=== PATIENT | male | born 1950 | race Caucasian/White ===

== ENCOUNTER 2018-09-22 08:34 | Inpatient (IN) ==
[2018-09-22] MEDS ORDERED: 0.9 % Sodium Chloride 1,000 ML IVC SCH ×2 (08:45→16:07)
[2018-09-22] MEDS ORDERED: 0.9 % Sodium Chloride 1,000 ML ONE ×2 (09:03→09:14)
--- NOTE | 2018-09-22 09:08 | Pre-Sedation Evaluation ---
Pre-sedation evaluation - Pre-sedation checklist Date of procedure: 09/22/18 Procedure: C H&P (including ROS) documented in medical record: Yes Previous reaction to sedatives/anesthetics: No Dietary Status: NPO after Midnight Airway Assessment: Patient can open mouth completely, TMJ function normal, Micrognathia (under-bite, receding chin) absent, Neck with adequate range of motion Dentition: No loose teeth or bridges Possible difficult airway: No ASA Classification *see protocol: CLASS II-Mild systemic disease Plan of Care: Pt appropriate candidate for procedure/moderate/conscious sedation, Risks/benefits of procedure/sedation discussed w/ patient/family Cardiac Registry (Cardio Only) - Functional Capacity Functional Capacity: >=4 METS with symptoms - Clincal Frailty Scale Clinical Frailty Scale: Managing Well
--- NOTE | 2018-09-22 09:09 | History & Physical Report ---
Date of Encounter: 09/22/18 Time of Encounter: 09:05 24 Hour HP Update - Instructions Instructions: If the History and Physical is less than 30 days old and was completed prior to A.M. admission and or procedure and has NOT been updated on calendar day of procedure please complete this update prior to performing procedure. - Update Patient reports changes in Medical Condition: No Changes in examination, assessment, or condition: No Changes in Medication: Yes Preop tests/diagnostics Reviewed: Yes Surgery Remains Indicated: Yes Consent for Planned Operative Procedure(s) Verified: Yes - Pre-Operative Checklist Preoperative Checklist Indicated: No Prophylactic Antibiotic Ordered: No Home Medications Include Beta Cathie: Yes Beta Cathie Taken Today (Day of Surgery): Yes Beta Cathie Taken Yesterday (Day Prior to Surgery): Yes Is VTE Prophylaxis Indicated?: NO
[2018-09-22] MEDS ORDERED: Heparin 1,000 UNITS/500 mL 500 ML ONE (09:13)
[2018-09-22] MEDS ORDERED: ISOVUE-370 200 ML INFUS..BTL ONE (09:13)
[2018-09-22] MEDS ORDERED: *HR* Heparin 10,000 UNIT/10 ML VIAL ONE (09:13)
[2018-09-22] MEDS ORDERED: Nitroglycerin 1,000 MCG/10 ML VIAL IV ONE (09:14)
[2018-09-22] MEDS ORDERED: *HR* Midazolam HCl 2 MG/2 ML VIAL ONE (10:17)
[2018-09-22] MEDS ORDERED: *HR* FentaNYL (PF) 100 MCG/2 ML VIAL ONE (10:18)
[2018-09-22] MEDS ORDERED: Acetaminophen 325 MG TABLET PO PRN (11:14)
[2018-09-22] MEDS ORDERED: Nitroglycerin 0.4 MG TAB.SUBL SL PRN (11:14)
--- NOTE | 2018-09-22 13:03 | Invasive Diagnostic Lab Proc ---
Name: Enrique Nelson Date of Study: 09/22/2018 Date: 1950 Ht: 70.0in Medical Record#: [id number] Age: 68 Wt: 206.35lb Gender: Male BSA: 2.12 Order #: [id number] BMI: 29.61 Physicians Procedure Physician: Liz Jones MD, FACC Referring MD: Referring MD: Mukund Salazar MD Staff Name [facility] Suki Guallpa RN Pre-Op Nurse Nicol Luis RT (R) Scrub 10:14 AM Stephany Og RN Monitor 10:14 AM Leni Rousseau RN Calender Wind Up Helper 10:15 AM Indications Indication Abnormal Test - Stress Procedures Performed Procedure L HRT ARTERY/VENTRICLE ANGIO Pre-Procedure Checklist Informed consent is complete signed and on chart. H&P is on chart. ID band is on and ID verified with patient. Patient NPO for procedure The procedure was described for the patient and questions were answered. Blood Pressure: 133/88 ECG is on chart. Rhythm: NSR Plan of Care Patient will tolerate the procedure without complications. Adequate level of comfort will be maintained. Hemodynamics will remain stable Patient will recover from procedure without complications. Respiratory function will be maintained. Cardiac rhythm will remain stable. Patient temperature will be maintained. Patient and/or family have verbalized understanding of the procedure. Patient Education Intravenous Access Time IV Size Location DC'd Fluid/Drip Rate Units RN 09:04 AM Started with 20g 1 1/4" Lt Antecubital 0.9NaCl 20 ml/hr Suki Guallpa RN Allergies No Known Allergies Vital Signs Time BP (mmHg) HR (bpm) O2 Sat. RR (bpm) LOC 09:04 AM 133 / 88 62 96 % 18 5 = Fully awake and oriented or at pre-proc level 10:17 AM / % 5 = Fully awake and oriented or at pre-proc level 10:17 AM / % 4 = Oriented but drowsy 10:32 AM / % 4 = Oriented but drowsy 10:17 AM 150 / 82 57 98 % 16 10:22 AM 135 / 79 57 96 % 14 10:27 AM 142 / 68 59 96 % 27 10:32 AM 129 / 75 58 95 % 18 10:42 AM 124 / 69 58 96 % 13 10:47 AM 117 / 71 61 97 % 22 11:30 AM 135 / 81 56 94 % 16 5 = Fully awake and oriented or at pre-proc level 11:45 AM 139 / 85 57 95 % 16 5 = Fully awake and oriented or at pre-proc level 12:24 PM 136 / 83 67 95 % 16 5 = Fully awake and oriented or at pre-proc level 12:35 PM 143 / 84 65 97 % 16 5 = Fully awake and oriented or at pre-proc level Procedural Medications Time Medication Dose Units Method Given By 10:18 AM Oxygen 2 L/min nasal cannula Leni Rousseau RN 10:18 AM Versed 2 mg Intravenous Leni Rousseau RN 10:18 AM Fentanyl 50 mcg Intravenous Leni Rousseau RN 10:29 AM Lidocaine 2% 18 ml Subcutaneous Liz Jones MD, [facility] Renuka Score Preprocedure Postprocedure Activity 2- Moves 4 extremities sustained head lift Activity 2- Moves 4 extremities sustained head lift Circulation 2- SBP +/= 20 points of pre-anesthetic level Circulation 2- SBP +/= 20 points of pre-anesthetic level Consciousness 2- Awake and alert oriented x 3 Consciousness 2- Awake and alert oriented x 3 O2 Saturation 2- Able to maintain O2 satruation of 92% on room air O2 Saturation 2- Able to maintain O2 satruation of 92% on room air Respiratory 2- Able to deep breathe and cough well Respiratory 2- Able to deep breathe and cough well Total Score 10 Total Score 10 Contrast Agent: Isovue Diagnostic Contrast: 73 ml Total Contrast: 73 ml Fluoro Dose: 3475 mGy Procedure Log Time Note Enter By 10:14 AM Pt arrived to electroplating laborer 2 at 10:14 [facility] 10:14 AM [facility] Virgilio and colten completed [facility] 10:14 AM Sign in performed according to hospital policy. Informed [facility]. [email or web address] AM Procedure start 10:14 [facility] 10[facility] AM Patient charges- Angio tray pack, Navilyst 3mm J, Pulse Oximetry and ACIST tubing and transducer [email or web address] 10:14 AM IV Supplies used: J loop Angio Cath. [facility] 10:14 AM Nicol Luis RT (R) Position: scrub Time in: 10:14 [email or web address] 10:15 AM Stephany Og RN Position: Monitor Time in: 10:14 [email or web address] 10:15 AM Leni Rousseau RN Position: Calender Wind Up Helper Time in: 10:15 [email or web address] 10:15 AM Case Delayed No [email or web address] 10:16 AM Hair removed from procedure site in holding area using clippers. Bilateral groin prepped with Chloraprep by Leni Rousseau RN, then patient was draped. Skin intact. [email or web address] 10:16 AM CathStat 10:16 AM Vitals capture started with the following parameters, Patient=Adult, Interval=5 min, Initial Wdcnskmt=287 mmHg, Deflation Rate=5 mmHg, Cuff placed on Right Arm 10: AM Time: :17 Patient comfortable and pain free: Yes scoates 10:17 AM Time: 10:17LOC: 5 = Fully awake and oriented or at pre-proc level scoates 10:17 AM HR=57 bpm, HGEX=560/82 mmhg, SpO2=98.0 %, Resp=16 B/min, EtCO2=32 mmHg, Comment=sb 10: AM Time: 10:18 Oxygen on at 2 L/min per nasal cannula by Leni oRusseau RN scoates 10: AM Time: 10:18 Versed 2 mg Intravenous Given by Leni Rousseau RN scoates 10: AM Time: 10:18 Fentanyl 50 mcg Intravenous Given by Leni Rousseau RN scoates 10: AM HR=57 bpm, HHFH=498/79 mmhg, SpO2=96.0 %, Resp=14 B/min, Comment=sb 10:25 AM Clinical Presentation: Unstable angina scoates 10: AM HR=59 bpm, IXPX=892/68 mmhg, SpO2=96.0 %, Resp=27 B/min, Comment=sb 10: AM Time out was performed according to hospital policy. Conscious sedation and anesthesia was achieved (see medication log with in this report above) scoates : AM Time: : 18 ml Lidocaine 2% to right groin Subcutaneous Given by Liz Jones MD, [facility] scoates 10:29 AM Access obtained by percutaneous puncture. 5Fr 10cm Terumo Buckhorn sheath placed in right Femoral artery. [id number] scoates 10:30 AM LCA angiography performed in multiple views. scoates 10:30 AM Pressure channel 1 zeroed. 10:31 AM Pressure channel 1 zeroed. 10:31 AM Recorded Pressure: Ao, HR=62, Condition=Condition 1 (Aorta) Ao 164/118/139 10:32 AM HR=58 bpm, MPIL=071/75 mmhg, SpO2=95.0 %, Resp=18 B/min, Comment=sb 10:32 AM Time: 10:17 Patient comfortable and pain free: Yes scoates 10:32 AM Time: 10:17LOC: 4 = Oriented but drowsy scoates 10:32 AM Catheter removed scoates 10:33 AM 5Fr FR 4 catheter inserted over the wire DNC scoates 10:33 AM RCA angiography performed in multiple views. scoates 10:34 AM Catheter removed scoates 10:35 AM 5Fr Pigtail catheter inserted over the wire [facility] scoates 10:40 AM Catheter crossed the aortic valve and was selectively placed in the left ventricle. Pressures recorded on pullback for left heart catheterization. scoates 10:40 AM Bolus angiogram of left Ventricle complete: 8 ml/sec for a total of 24 mls scoates 10:40 AM Pressure channel 1 zeroed. 10:41 AM Recorded Pressure: LV, HR=60, Condition=Condition 1 (Left Ventricle) LV 131/-8/9 10:41 AM Recorded Pressure: LV, Ao, HR=57, Condition=Condition 1 (Left Ventricle) LV 90/10/13, (Aorta) Ao 93/55/74 10:42 AM HR=58 bpm, GLIL=710/69 mmhg, SpO2=96.0 %, Resp=13 B/min, Comment=sb 10:42 AM Catheter removed scoates 10:43 AM Procedure completed at 10:42 09/22/2018 scoates 10:45 AM Sign out completed: Radiation Dose 278 mGy, 3475 cGy/cm2 Fluoro Time: 2.1 Isovue 370 - 200ml contrast 73 ml given by Liz Jones MD, [facility]. Complications: None. The patient was discharged out of the slab installer in stable condition. Cardiac Rehab Consult needed: NoConfirmed administered medications: Yes scoates 10:45 AM Isovue 370 - 200ml,1 Bottle(s) used. scoates 10:47 AM HR=61 bpm, LQRV=746/71 mmhg, SpO2=97.0 %, Resp=22 B/min 10:47 AM Time: 10:32 Patient comfortable and pain free: Yes scoates 10:48 AM Time: 10:32LOC: 4 = Oriented but drowsy scoates 10:50 AM Arterial sheath pulled, Mynx closure device used and was Successful [id number] S/N. scoates 10:50 AM Estimated Blood Loss: minimal scoates 10:50 AM Post ECG Sinus Bradycardia scoates 10:50 AM Post Blood Pressure 117/71 scoates 10:50 AM 10:50 Post Pulses Bilateral DP & PT 1+ scoates 10:50 AM Information taught Cardiac Cath scoates 10:51 AM Education needs Procedure, Plan of Care, and Responsibilities of Patient in Care scoates 10:51 AM Learning barriers :None scoates 10:51 AM Education Methods Verbal scoates 10:51 AM Education evaluation Able to repeat information scoates 10:54 AM Site status No bleeding/hematoma - Rt Groin as reported by Sites, Nicol RT (R) at 10:54 scoates 10:54 AM Opsite applied scoates 10:54 AM Report given to Fadia COTA Pt taken to Holding room Room #14. 10:54 scoates 10:54 AM Plavix, Effient or Brilinta given No scoates 10:54 AM Delay to floor Bed availability scoates 10:54 AM Patient out of room: 10:54 scoates 10:55 AM Family placed in consult room. scoates 10:[address] surgery consulted scoates 10:55 AM is in OR, gave consult info to his OR nurse scoates 10:55 AM Lesion found in Proximal RCA. Pre Stenosis: 100 Pre SEAMUS Flow: scoates 10:55 AM Lesion found in Distal LMCA. Pre Stenosis: 90 Pre SEAMUS Flow: scoates 10:55 AM Coronary Dominance: right scoates 10:56 AM Lesion found in Proximal LAD. Pre Stenosis: 90 Pre SEAMUS Flow: scoates 10:56 AM Lesion found in Proximal Circumflex. Pre Stenosis: 70 Pre SEAMUS Flow: scoates 10:56 AM Lesion found in Right PDA. Pre Stenosis: 100 Pre SEAMUS Flow: scoates 10:57 AM Left Main Coronary Artery with 90% stenosis scoates 10:57 AM Proximal Left Anterior Descending Coronary Artery with 90% stenosis. If graft is supplying this territory, 0 % stenosis. scoates 10:57 AM Circumflex, Obtuse Marginal, Left Posterior Descending, and Left Posterolateral Coronary Arteries with 70 % stenosis. If graft is supplying this area, 0 % stenosis scoates 10:57 AM Right Coronary, Right Posterior Descending Arteries with Right Posterolateral and Acute Marginal branches with 100 % stenosis. If graft is supplying this area, 0 % stenosis scoates 11:46 AM Patient eating food tray. at bedside mprater 12:50 PM Report given to Kori mprtiki 12:54 PM Transfered patient to Ifeoma mprater Complications Complication None Hemodynamics Pressures Site Systolic/A Wave Diastolic/V Wave Mean AO 164 118 139 LV 131 -8 9 LV 90 10 13 AO 93 55 74 Post Procedure Information Blood Pressure: 117/71 mmHg Rhythm: Sinus Bradycardia Post procedural instructions were given Closure Device Time Device Success/Fail 09/22/2018 10:57:00 AM MynxGrip Successful Site Checks Time Location Status Staff Sheath In? Note 10:54 AM Rt Groin No bleeding/hematoma Sites, Nicol RT (R) 11:30 AM Rt Groin No bleeding/ No Hematoma Shey Bronson RN 11:45 AM Rt Groin No bleeding/ No Hematoma Shey Bronson RN 12:24 PM Rt Groin No bleeding/ No Hematoma Suki Guallpa RN 12:35 PM Rt Groin No bleeding/ No Hematoma Shey Bronson RN Pulses Time Site Pre-Procedure Post-Procedure Note 09/22/2018 9:04:00 AM Bilateral DP & PT 1+ 09/22/2018 9:04:00 AM Bilateral radial 2+ 10:50:00 AM Bilateral DP & PT 1+ 09/22/2018 11:30:00 AM Bilateral DP & PT 1+ 09/22/2018 12:35:00 PM Bilateral DP & PT 1+ Updated by Shey Bronson RN on 09/22/2018 12:53:55 PM Shey Bronson RN electronically signed on 09/22/2018 12:54:28 PM with status of Final
--- NOTE | 2018-09-22 15:36 | Cardiothoracic Consult Note ---
Date of Encounter: 09/22/18 Time of Encounter: 15:33 Assessment and Plan (1) CAD (coronary artery disease) Current Visit: Yes Status: Acute The patient is an active 68-year-old man with no significant medical history. During the last 6 months he has noticed progressive shortness of breath and dyspnea exertion while lifting heavy objects. He was recommended for cardiac workup by his primary care physician. An exercise nuclear stress test revealed mild mid-inferior ischemia on the nuclear portion and the patient experienced nonradiating substernal chest pain during the exercise portion. Subsequent cardiac catheterization revealed severe 3 vessel CAD and an LVEF 60%. In particular, the patient has a 90% distal left main lesion, 90% proximal LAD lesion, a 70% proximal LCx lesion, and a completely occluded proximal RCA. He has been recommended for CABG. I concur with this recommendation. The STS risk calculator reveals an operative mortality risk 0.61%, renal failure risk 0.87%, permanent stroke risk 0.38%, deep sternal wound infection risk 0.18%, and reoperation risk 1.77%. The patient understands the procedure, benefits, alternatives, and risks as outlined above. He will undergo CABG by Dr. Luis Carrillo on September. The assessment and plan as outlined above was discussed with the patient and/or family members who expressed understanding and agreement. All questions were answered. Qualifiers: Coronary Disease-Associated Artery/Lesion type: [place] artery [place] vs. transplanted heart: [place] heart Associated angina: with other forms of angina Qualified Code(s): I25.118 - Atherosclerotic heart disease of [place] coronary artery with other forms of angina pectoris - History of Present Illness Consult date: 09/22/18 Requesting physician: Liz Jones Consult reason: CABG evaluation Chief complaint: Shortness of breath, dyspnea on exertion History of present illness: Mr. Nelson is a 68 year old otherwise healthy man who is experienced progressive shortness of breath and dyspnea exertion during the last 6 months. 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 These activities require him to lift heavy objects and during the last 6 months he has noticed increasing shortness of breath and dyspnea exertion. The patient denies any substernal chest pain, arm pain, back pain, or neck pain. He mentioned these symptoms to his primary care physician, Dr. David Atwood, and was referred for cardiac workup. The patient underwent an exercise stress test which revealed no evidence of is chemia during the exercise portion; however, he did have nonradiating substernal chest pain/pressure during exercise. The nuclear portion revealed mild mid- inferior ischemia. Given his symptoms, he was recommended for further cardiac workup. He underwent cardiac catheterization today was found to have severe 3 vessel CAD and an LVEF 60%. In particular the patient has a 90% distal left main lesion, a 90% proximal LAD lesion, a 70% proximal LCx lesion, a completely occluded proximal RCA, and a completely occluded right PDA which fills distally via [id number] collaterals. He has been recommended for CABG. Past Med Surg Social Fam HX - Past Medical History Medical history: coronary artery disease, hyperlipidemia Additional medical history: detiriated disk in back Psychiatric history: depression - Past Surgical History Surgical History: appendectomy, herniorrhaphy (Right inguinal herniorrhaphy) - Social History Smoking Status: Never smoker Smokeless Tobacco Status: No Alcohol use: rarely Drug use: none Occupational status: employed Current living situation: Home - Independent Activity Level: Independent ambulation, Very active Recent Out of Country Travel Within the Last 8 Weeks: No Exposure or Possible Exposure to Illness During Travel: No - Family History Mother Adopted: [place]: elizabeth nelson Age: 96 Family Member Ethnicity: Non- Living Status: Still Living Hx Family Cardiac Disorders: Yes Hx Family Respiratory Disorders: No Hx Family Cancer: No Hx Family GI Disorders: No Hx Family Genitourinary Disorders: No Hx Family Endocrine Disorder: Yes Hx Family Musculoskeletal Disorders: No Hx Family Neuromuscular Disorders: No Hx Family Neurologic Disorders: Yes Hx Family HEENT Disorders: No Hx Family Autoimmune Disorders: No Hx Family Reproductive Disorders: No Hx Family Psychosocial Disorders: Yes Hx Family Medical Disorders: Yes Medications and Allergies Doxycycline 100 mg PO BID 09/22/18 [History] Metoprolol Succinate [Toprol Xl] 25 mg PO DAILY 09/22/18 [History] Allergy/AdvReac Type Severity Reaction Status Date / Time No Known Allergies Allergy Verified 09/22/18 08:37 All Systems Review: The remainder of the systems were reviewed and are negative Physical Examination Vital Signs, Last 4 Hours Temp Pulse Resp BP Pulse Ox 09/22/18 15:11 65 17 147/80 95 09/22/18 14:45 62 17 132/78 94 09/22/18 14:00 65 17 126/76 95 09/22/18 13:30 62 98 09/22/18 13:25 97.5 F L 67 18 136/74 95 09/22/18 13:15 71 17 140/83 98 09/22/18 13:10 97.5 F L 67 18 136/74 95 General: Conversant, No Apparent Distress HEENT: Atraumatic, Normocephaly, Trachea midline Neck: No JVD, Normal carotid pulses Cardiac: Reg Rate and Rhythm, Normal S1 and S2, No Murmur Lungs: Normal Breath Sounds, No Wheeze, Rales, Rhonchi Neuro: Alert and responsive, No focal deficits noted, Motor nerves intact, Sensory nerves intact Vascular: Normal capillary refill Abdomen: Soft, Non-tender Skin: No rashes noted on visualized skin Musculoskeletal: No Chest Wall Tenderness Extremities: No Clubbing, No Cyanosis, No Edema, Normal Pulses Consult Discharge Plan - Plan Referrals: Norma Salazar MD [Primary Care Provider] -
[2018-09-22 16:33] LABS: Estimated Average Glucose 108 mg/dl; Hemoglobin A1C 5.4 %
[2018-09-22 16:41] LABS: Chol/HDL Ratio 4.8 (0-4.9)
[2018-09-22] MEDS: Chlorhexidine Rinse 15 ML MOUTHWASH MM SCH (21:38)
[2018-09-22] MEDS: 0.9 % Sodium Chloride 1,000 ML IVC SCH (21:59)
[2018-09-23] MEDS: *HR* Enoxaparin 40 MG/0.4 ML SYRINGE SQ SCH (05:05)
[2018-09-23] MEDS: 0.9 % Sodium Chloride 1,000 ML IVC SCH (06:46)
--- NOTE | 2018-09-23 07:31 | Cardiothoracic Progress Note ---
Date of Encounter: 09/23/18 Time of Encounter: 07:30 - Assessment and plan (1) CAD (coronary artery disease) Current Visit: Yes Status: Acute The patient is an active 68-year-old man with no significant medical history. During the last 6 months he has noticed progressive shortness of breath and dyspnea exertion while lifting heavy objects. He was recommended for cardiac workup by his primary care physician. An exercise nuclear stress test revealed mild mid-inferior ischemia on the nuclear portion and the patient experienced nonradiating substernal chest pain during the exercise portion. Subsequent cardiac catheterization revealed severe 3 vessel CAD and an LVEF 60%. In particular, the patient has a 90% distal left main lesion, 90% proximal LAD lesion, a 70% proximal LCx lesion, and a completely occluded proximal RCA. He has been recommended for CABG. I concur with this recommendation. The STS risk calculator reveals an operative mortality risk 0.61%, renal failure risk 0.87%, permanent stroke risk 0.38%, deep sternal wound infection risk 0.18%, and reoperation risk 1.77%. The patient understands the procedure, benefits, alternatives, and risks as outlined above. He will undergo CABG by Dr. Luis Carrillo on September. The assessment and plan as outlined above was discussed with the patient and/or family members who expressed understanding and agreement. All questions were answered. Qualifiers: Coronary Disease-Associated Artery/Lesion type: [place] artery [place] vs. transplanted heart: [place] heart Associated angina: with other forms of angina Qualified Code(s): I25.118 - Atherosclerotic heart disease of [place] coronary artery with other forms of angina pectoris - Subjective Interval history: The patient remained hemodynamically stable overnight. He has no complaints of substernal chest pain. Vital Signs, Last 4 Hours Temp Pulse Resp BP Pulse Ox 09/23/18 06:45 98.2 F 64 18 127/81 93 09/23/18 04:55 98.2 F 68 17 135/76 96 Oxgyen Flow Rate Oxygen Flow Rate (LPM) 0 Clinical Data, last 8 Hours Output, Urine Amount 200 Output, Urine Amount 225 Output, Urine Amount 275 Weight 09/21/18 09/22/18 09/23/18 23:59 23:59 23:59 Weight 92.9 kg - Physical Examination General: Conversant, No Apparent Distress Neck: No JVD, Normal carotid pulses Cardiac: Reg Rate and Rhythm, Normal S1 and S2, No Murmur Lungs: Normal Breath Sounds, No Wheeze, Rales, Rhonchi Neuro: Alert and responsive, No focal deficits noted Vascular: Normal capillary refill Musculoskeletal: No Chest Wall Tenderness Extremities: No Clubbing, No Cyanosis, No Edema Consult Discharge Plan - Plan Referrals: Norma Salazar MD [Primary Care Provider] -
[2018-09-23] MEDS ORDERED: Metoprolol XL (24 HR) Succ 25 MG TAB.ER.24H PO SCH (09:00)
[2018-09-23] MEDS: Chlorhexidine Rinse 15 ML MOUTHWASH MM SCH ×2 (09:02→21:32)
[2018-09-23] MEDS: Aspirin 81 MG TAB.CHEW PO SCH (09:02)
--- NOTE | 2018-09-23 12:01 | Cardiology Progress Note ---
Date of Encounter: 09/23/18 Time of Encounter: 11:55 Assessment and Plan (1) CAD (coronary artery disease) Current Visit: Yes Status: Acute LHC yesterday revealed severe 3V CAD, EF 60%. CT surgery consulted with plan for CABG tomorrow, 09/24/18. Pt denies chest pain overnight. Right femoral access site healing well. No bleeding or hematoma. Mild ecchymosis. Continue ASA, Statin, BB. TTE LVEF 55-60%. Mild cLVH. Moderate LVDD. Normal right ventricular structure and function. Mild AR. No evidence of phtn. Will continue to follow until taken to CABG. Qualifiers: Coronary Disease-Associated Artery/Lesion type: [place] artery [place] vs. transplanted heart: [place] heart Associated angina: with other forms of angina Qualified Code(s): I25.118 - Atherosclerotic heart disease of [place] coronary artery with other forms of angina pectoris Discussion w patient/family: The assessment and plan as outlined above was discussed with the patient and/or family members who expressed understanding and agreement. All questions were answered. Thank you for involving us in the care of your patient. Please call with any questions. I will discuss all the above with Dr. Pereira and make changes as necessary. Subjective Principal diagnosis: CAD Interval history: Outpt LHC yesterday revealed severe three vessel coronary artery disease. The left ventricle is normal and has normal contractility EF 60%. CT surgery consulted with plan for CABG tomorrow, 09/24/18. Pt denies chest pain overnight. Objective Vital Signs, Last 4 Hours Temp Pulse Resp BP Pulse Ox 09/23/18 11:46 98.2 F 61 18 142/81 93 Vital Signs Temp Pulse Resp BP Pulse Ox 09/23/18 11:46 98.2 F 61 18 142/81 93 09/23/18 06:45 98.2 F 64 18 127/81 93 09/23/18 04:55 98.2 F 68 17 135/76 96 09/23/18 00:40 98.2 F 68 17 117/68 94 09/22/18 19:37 98.3 F 63 16 122/61 94 09/22/18 17:01 97.9 F 64 16 137/74 94 09/22/18 15:11 65 17 147/80 95 09/22/18 14:45 62 17 132/78 94 09/22/18 14:00 65 17 126/76 95 09/22/18 13:30 62 98 09/22/18 13:25 97.5 F L 67 18 136/74 95 09/22/18 13:15 71 17 140/83 98 09/22/18 13:10 97.5 F L 67 18 136/74 95 Intake and Output 09/22/18 09/23/18 09/23/18 23:59 07:59 15:59 Intake Total 357 / 357 1000 / 1000 Output Total 600 / 600 700 / 700 Balance -243 / -243 300 / 300 Intake: IV Fluids 1000 / 1000 0.9 % Sodium Chloride 1,000 ML 1000 / 1000 @ 50 mls/hr IVC .Q20H CYNTHIA Rx#: [id number] Oral 357 / 357 Output: Urine 600 / 600 700 / 700 Other: Meal Dinner Percent of Meal Consumed 100% General: Conversant, No Apparent Distress HEENT: Atraumatic, Normocephaly, Mucus Membranes Moist Neck: No JVD, Normal carotid pulses Cardiac: Reg Rate and Rhythm, Normal S1 and S2, No Murmur Lungs: Normal Breath Sounds, No Wheeze, Rales, Rhonchi Neuro: Alert and responsive, No focal deficits noted Abdomen: Soft, Non-Tender Skin: Other (right femoral access site healing well. No bleeding or hematoma noted. Mild ecchymosis.) Musculoskeletal: No Chest Wall Tenderness Extremities: No Clubbing, No Cyanosis, No Edema, Normal Pulses Results Impressions Chest X-Ray 09/22/18 15:43 IMPRESSION: Trace left basilar airspace disease is favored to represent atelectasis over pneumonia. D/ / Roger Burks MD / Roger Burks MD Interpreting Provider: Roger Burks MD Active Medications Acetaminophen (Tylenol) 650 mg PO Q6HR PRN PRN Reason: Mild Pain Stop: 03/24/19 11:15 Aspirin (Aspirin) 81 mg PO DAILY CYNTHIA Stop: 03/25/19 09:01 Last Admin: 09/23/18 09:02 Dose: 81 mg Atorvastatin Calcium (Lipitor) 80 mg PO HS CYNTHIA Stop: 03/24/19 21:01 Last Admin: 09/22/18 21:42 Dose: Not Given Enoxaparin Sodium (Lovenox) 40 mg SQ 0600 [facility]; Protocol Stop: 03/25/19 06:01 Last Admin: 09/23/18 05:05 Dose: 40 mg Cefazolin Sodium (Ancef Syringe 2,000 Mg/20 Ml) 2,000 mg in 20 mls @ 200 mls/hr IVPB PREOP ONE Stop: 09/24/18 07:05 Sodium Chloride (0.9 % Sodium Chloride) 1,000 mls @ 50 mls/hr IVC .Q20H [facility] Stop: 03/24/19 21:46 Last Admin: 09/23/18 06:46 Dose: 50 mls/hr Metoprolol Succinate (Toprol Xl) 25 mg PO DAILY [facility] Stop: 03/25/19 09:01 Last Admin: 09/23/18 09:01 Dose: 25 mg Metoprolol Tartrate (Lopressor) 25 mg PO BID [facility] Stop: 09/24/18 06:01 Nitroglycerin (Nitroglycerin) 0.4 mg SL Q5MIN PRN PRN Reason: Chest Pain Stop: 03/24/19 11:15 - Imaging and Cardiology Echo: report reviewed Cardiac cath: report reviewed - EKG Interpretation EKG results cardiology: other (12 hr tele AVG HR 66, SR) Consult Discharge Plan - Plan Referrals: Norma Salazar MD [Primary Care Provider] -
[2018-09-23] MEDS ORDERED: 0.9 % Sodium Chloride 1,000 ML IVC SCH (16:05)
[2018-09-24] MEDS: 0.9 % Sodium Chloride 1,000 ML IVC SCH (02:45)
[2018-09-24] MEDS: *HR* Enoxaparin 40 MG/0.4 ML SYRINGE SQ SCH (05:10)
[2018-09-24] MEDS: Chlorhexidine Rinse 15 ML MOUTHWASH MM SCH ×2 (05:44→20:12)
[2018-09-24] MEDS: Aspirin 81 MG TAB.CHEW PO SCH (06:30)
[2018-09-24] MEDS ORDERED: Verapamil 5 MG/2 ML VIAL ONE (06:41)
[2018-09-24] MEDS ORDERED: CeFAZolin Syr 2,000MG/20 ML 2,000 MG/20 ML SYRINGE IVPB ONE (07:00)
[2018-09-24] MEDS ORDERED: *HR* FentaNYL (PF) 1,000 MCG/20 ML VIAL ONE (07:06)
[2018-09-24] MEDS ORDERED: *HR* Rocuronium Bromide 50 MG/5 ML VIAL ONE ×2 (07:06→09:34)
[2018-09-24] MEDS ORDERED: *HR* Propofol 200 MG/20 ML VIAL IVP ONE (07:06)
[2018-09-24] MEDS ORDERED: *HR* Midazolam HCl 5 MG/5 ML VIAL IVP ONE (07:06)
[2018-09-24] MEDS ORDERED: Dexamethasone 4 MG/ML VIAL ONE (07:09)
[2018-09-24] MEDS ORDERED: *HR* PHENYLEPHRINE 1,000 MCG/10 ML SYRINGE IVP ONE ×3 (07:09→11:39)
[2018-09-24] MEDS ORDERED: Famotidine 20 MG/2 ML VIAL ONE (07:09)
[2018-09-24] MEDS ORDERED: *HR* Magnesium Sulfate 1 GM/2 ML VIAL ONE (07:09)
[2018-09-24] MEDS ORDERED: Lidocaine 2% Syringe 100 MG/5 ML ONE (07:10)
[2018-09-24] MEDS ORDERED: Tranexamic Acid 1,000 MG/10 ML VIAL ONE (07:10)
[2018-09-24] MEDS ORDERED: Nitroglycerin 25 MG/250 ML INFUS..BTL IVC ONE (07:17)
--- NOTE | 2018-09-24 07:24 | Anesthesia Evaluation PreOp ---
Date of Encounter: 09/24/18 Time of Encounter: 07:32 - Past History Planned Operation: CABG Cardiac History: HTN, Hyperlipidemia, Other (CAD) Pulmonary History: Denies Any Significant HX VOCATIONAL CASE MANAGER History: Denies Any Significant HX Other Medical History: Denies Any Significant HX Anesthesia History: No Prior Anesthetic Complications, Past Anesthesia (appy, R inguinal hernia) Alcohol Use: rarely Drug use: none Medications and Allergies Doxycycline 100 mg PO BID 09/22/18 [History] Metoprolol Succinate [Toprol Xl] 25 mg PO DAILY 09/22/18 [History] Nitroglycerin [Nitrostat] 0.4 mg SL AD 09/23/18 [History] Allergy/AdvReac Type Severity Reaction Status Date / Time No Known Allergies Allergy Verified 09/23/18 09:03 - Meds/Allergy Pre-op Review Medications Reviewed: Yes Allergies Reviewed: Yes Beta Blockers on Current Med List: Yes (metoprolol) If Beta Blockers taken, Date/Time (Last Dose taken): 544 Anesthesia Results - Labs Laboratory Tests 09/17/18 09/17/18 14:03 14:03 WBC 4.2 L Hgb 13.5 Hct 39.0 Plt Count 227 Sodium 138 Potassium 3.9 Chloride 107 Carbon Dioxide 25 BUN 15 Creatinine 0.97 Est GFR (Non-Af Amer) > 60 - Imaging EKG: report reviewed Additional studies: LEFT HEART CATH Indications: Abnormal Test - Stress Impressions: There is severe three vessel coronary artery disease. The left ventricle is normal and has normal contractility EF 60% Recommendations: Evaluate for CABG. Optimal medical therapy of patient's disease. Aggressive risk factor modification. LV Ventriculography Ejection Method: LV Gram Ejection Fraction: 60% Wall Motion: VALENCIA Anterobasal Normal Anterolateral Normal Apical: Normal Inferoapical Normal Inferobasal Severe Hypokinesis Coronary Dominance: right Lesion Findings/Interventions * Left Main Coronary Artery There is a 90% stenosis in the Distal LMCA. The lesion has heavy calcification noted. * Left Anterior Descending There is a 90% stenosis in the Proximal LAD. The lesion has heavy calcification noted. * Circumflex There is a 70% stenosis in the Proximal Circumflex. 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 R PDA fills via L to R collaterals. Echo Impressions: LVEF 55-60%. Mild concentric left ventricular hypertrophy. Moderate left ventricular diastolic dysfunction. Normal right ventricular structure and function. Mild aortic regurgitation. No evidence of pulmonary hypertension. Left Ventricular Wall Motion: Rest Echo Findings All wall segments showed normal motion. Findings: Study Quality * Technically adequate exam. ECG Findings * Normal sinus rhythm. Left Ventricle * LVEF 55-60%. * Mild concentric left ventricular hypertrophy. * Moderate left ventricular diastolic dysfunction. Aortic Valve * Mild aortic regurgitation. * No aortic stenosis. * Normal aortic valve structure. * Trileaflet aortic valve. Right Ventricle * Normal right ventricular structure and function. Left Atrium * Normal left atrial size. Right Atrium * Normal right atrial size. Interatrial Septum * No evidence of PFO by color Doppler. Mitral Valve * Normal mitral valve structure. * No mitral regurgitation. * No mitral stenosis. Tricuspid Valve * No tricuspid regurgitation. * No tricuspid stenosis. * Normal tricuspid valve structure. * No evidence of pulmonary hypertension. Pulmonic Valve * Normal pulmonic valve structure. * No pulmonic regurgitation. Aorta * Normally sized aortic root. Pericardium * The pericardium appears normal. IVC * Normal IVC dimensions and inspiratory collapse. Pulmonary Artery * Normal visualized portions of the main pulmonary artery. Anesthesia Exam Vital Signs/O2 Sat/Glucose, Most Recent Temp Pulse Resp BP Pulse Ox 98.1 F 63 18 136/74 96 09/24/18 05:47 09/24/18 05:47 09/24/18 05:47 09/24/18 05:47 09/24/18 05:47 - HEENT Pupil (Motor): Pupils equal Mallampati: II Teeth: Normal Oral Opening: Greater than 3 - VOCATIONAL CASE MANAGER LOC: Oriented VOCATIONAL CASE MANAGER Motor: Normal RUE, Normal LUE, Normal RLE, Normal LLE, Normal Face VOCATIONAL CASE MANAGER Sensory: Normal: RUE, LUE, RLE, LLE, Face - Cardiac Rhythm: Regular Murmur: None - Pulmonary Breath Sounds: bilateral Clear Respiratory Effort: Symmetrical Anesthesia Assess/Plan ASA Score: 4 Level of consciousness: Cooperative, Oriented Anesthetic Plan: General Monitoring Plan: Standard Monitors, A-Line, CVC, PAC, CAROLINE Recovery Plan: ICU
[2018-09-24] MEDS ORDERED: Insulin Human Regular 100 UNIT in 0.9 % Sodium Chloride 100 ML IV PRN (07:45)
[2018-09-24] MEDS ORDERED: Dextrose 50 % in Water (Vial) 30 ML, Sodium Bicarbonate 20 MEQ, Potassium Chloride 15 M... TH ONE (07:45)
[2018-09-24] MEDS ORDERED: Dextrose 50 % in Water (Vial) 30 ML, Sodium Bicarbonate 20 MEQ, Lidocaine 1% 5 ML, Insu... TH ONE ×3 (07:45)
[2018-09-24] MEDS ORDERED: Heparin 15,000 UNIT in 0.9 % Sodium Chloride 500 ML IV ONE (07:45)
[2018-09-24] MEDS ORDERED: Norepinephrine 4 MG in D5% in Water 250 ML IVC PRN (07:45)
[2018-09-24 08:11] LABS: ABG Base Excess -1 mEq/L (-2 to 3); ABG Chloride 109 mEq/L (98-107); ABG Glucose 104 mg/dL (60-95); ABG HCO3 26 mEq/L (21-27); ABG Ionized Calcium 1.23 mmol/L (1.15-1.35); ABG Oxygen Saturation 99 % (95-98); ABG PCO2 53 mmHg (35-45); ABG PO2 147 mmHg (85-104); ABG TCO2 28 mEq/L (20-26)
[2018-09-24] MEDS ORDERED: *HR* Phenylephrine 10 MG/ML VIAL IVC ONE (08:50)
[2018-09-24] MEDS ORDERED: Tranexamic Acid 1,000 MG/10 ML VIAL IVPB ONE (08:50)
[2018-09-24] MEDS ORDERED: Sodium Bicarbonate 50 MEQ/50 ML VIAL IVC ONE (08:50)
[2018-09-24] MEDS ORDERED: Lidocaine 2% Syringe 100 MG/5 ML IV ONE (08:50)
[2018-09-24] MEDS ORDERED: Albumin Human 25% 25 GM/100 ML IV.SOLN IV ONE (08:50)
[2018-09-24] MEDS ORDERED: Mannitol 25% vial 12.5 GM/50 ML VIAL IVP ONE (08:50)
[2018-09-24] MEDS ORDERED: *HR* Magnesium Sulfate 2 GM/50 ML PIGGYBACK IVPB ONE (08:50)
[2018-09-24] MEDS ORDERED: *HR* Heparin 10,000 UNIT/10 ML VIAL IV ONE (08:50)
[2018-09-24 09:25] LABS: ABG Base Excess -2 mEq/L (-2 to 3); ABG Chloride 106 mEq/L (98-107); ABG Glucose 106 mg/dL (60-95); ABG HCO3 22 mEq/L (21-27); ABG Ionized Calcium 1.15 mmol/L (1.15-1.35); ABG Oxygen Saturation 99 % (95-98); ABG PCO2 34 mmHg (35-45); ABG PH 7.42 pH Units (7.32-7.45); ABG PO2 136 mmHg (85-104); ABG TCO2 23 mEq/L (20-26)
[2018-09-24] MEDS ORDERED: Albumin Human 5% 25.0 GM/500 ML VIAL ONE (09:26)
[2018-09-24] MEDS ORDERED: Protamine Sulfate 250 MG/25 ML VIAL IVP ONE (09:36)
[2018-09-24] MEDS ORDERED: Protamine Sulfate 50 MG/5 ML VIAL IVP ONE (09:36)
[2018-09-24 10:06] LABS: ABG Base Excess -1 mEq/L (-2 to 3); ABG Chloride 102 mEq/L (98-107); ABG Glucose 225 mg/dL (60-95); ABG HCO3 23 mEq/L (21-27); ABG Ionized Calcium 0.94 mmol/L (1.15-1.35); ABG Oxygen Saturation 100 % (95-98); ABG PCO2 36 mmHg (35-45); ABG PH 7.42 pH Units (7.32-7.45); ABG PO2 611 mmHg (85-104); ABG TCO2 24 mEq/L (20-26)
--- NOTE | 2018-09-24 10:14 | Anesthesia Procedures ---
Date of Encounter: 09/24/18 Time of Encounter: 08:10 Procedures: Anesthesia - Arterial Line Consent obtained: written consent Time out performed: Yes Sedation: Versed (mg): 2 Sedation: Fentanyl (mcg): 50 Local Anesthetic: Lidocaine 1% Size (Gauge): 20 Length (inches): 1 3/4 Technique Used: sterile prep, direct puncture technique Post-Procedure: line taped into place, dry sterile dressing placed Patient tolerated procedure: well, no complications Complications: none Site: Radial L - Central Line Placement Right IJ Consent obtained: written consent Time out performed: Yes Patient placed on monitor/pulse ox: Yes prep: mask, gown, gloves Central line prep: Chlorhexidine scrub Ultrasound used for placement: Yes Technique: Seldinger Lumen Inserted: single Size / Length: 9 Fr / 10 cm Post procedure: sutured in place, good blood return, all ports aspirated, flushed, capped, sterile dressing applied Patient tolerated procedure: well, no complications Complications: none Vitals: see anesthesia record Comments: PAC inserted using pressure waveform analysis and secured at 48 cm
[2018-09-24 10:40] LABS: ABG Base Excess 2 mEq/L (-2 to 3); ABG Chloride 99 mEq/L (98-107); ABG Glucose 186 mg/dL (60-95); ABG HCO3 27 mEq/L (21-27); ABG Ionized Calcium 0.94 mmol/L (1.15-1.35); ABG Oxygen Saturation 100 % (95-98); ABG PCO2 42 mmHg (35-45); ABG PH 7.42 pH Units (7.32-7.45); ABG PO2 574 mmHg (85-104); ABG TCO2 28 mEq/L (20-26)
[2018-09-24 11:10] LABS: ABG Base Excess 1 mEq/L (-2 to 3); ABG Chloride 101 mEq/L (98-107); ABG Glucose 88 mg/dL (60-95); ABG HCO3 27 mEq/L (21-27); ABG Ionized Calcium 1.15 mmol/L (1.15-1.35); ABG Oxygen Saturation 100 % (95-98); ABG PCO2 47 mmHg (35-45); ABG PH 7.36 pH Units (7.32-7.45); ABG PO2 541 mmHg (85-104); ABG TCO2 28 mEq/L (20-26)
[2018-09-24] MEDS ORDERED: *HR* Dextrose 50 % in Water (Syg) 50 ML SYRINGE ONE (11:38)
[2018-09-24 11:39] LABS: ABG Base Excess 0 mEq/L (-2 to 3); ABG Chloride 104 mEq/L (98-107); ABG Glucose 52 mg/dL (60-95); ABG HCO3 24 mEq/L (21-27); ABG Ionized Calcium 1.05 mmol/L (1.15-1.35); ABG Oxygen Saturation 100 % (95-98); ABG PCO2 38 mmHg (35-45); ABG PH 7.42 pH Units (7.32-7.45); ABG PO2 224 mmHg (85-104); ABG TCO2 25 mEq/L (20-26)
[2018-09-24] MEDS ORDERED: Insulin Regular, Human 100 UNIT/ML IV PRN (12:24)
[2018-09-24] MEDS ORDERED: *HR* Dextrose 50 % in Water (Syg) 50 ML SYRINGE IVP PRN (12:24)
[2018-09-24] MEDS ORDERED: Ondansetron 4 MG/2 ML VIAL IVP PRN (12:24)
[2018-09-24] MEDS ORDERED: *HR* Promethazine 25 MG/ML VIAL IVP PRN (12:24)
[2018-09-24] MEDS ORDERED: Potassium Chloride 40 MEQ/200 ML BAG IVPB PRN (12:24)
[2018-09-24] MEDS ORDERED: Naloxone 0.4 MG/ML INJ IVP PRN (12:24)
[2018-09-24] MEDS ORDERED: Norepinephrine 4 MG in D5% in Water 250 ML IVC SCH (12:30)
[2018-09-24 12:37] LABS: ABG Base Excess 1 mEq/L (-2 to 3); ABG HCO3 27 mEq/L (21-27); ABG Oxygen Saturation 97 % (95-98); ABG PCO2 47 mmHg (35-45); ABG PH 7.36 pH Units (7.32-7.45); ABG PO2 91 mmHg (85-104); ABG TCO2 28 mEq/L (20-26); Blood Gas Modality VC; Blood Gas PEEP 5 cm H2O; Blood Gas Respiration Rate 10; Blood Gas VT 550 cc
[2018-09-24 12:43] LABS: Basophils % 0.2 %; Eosinophils % 0.2 %; Hematocrit 30.4 % (37.5-50.1); Immature Granulocytes % 0.3 % (0-4); Lymphocytes # 0.6 K/mcL (0.6-4.6); Lymphocytes % 6.2 %; Mean Corpuscular HGB Conc 34.5 g/dL (31.6-35.5); Mean Corpuscular Hemoglobin 32.5 pg (28.0-33.3); Mean Corpuscular Volume 94.1 fL (83.0-100.0); Mean Platelet Volume 10.1 fL (9.4-12.4); Monocytes # 0.6 K/mcL (0.0-1.3); Monocytes % 6.9 %; Platelet Count 148 K/mcL (140-400); Red Blood Count 3.23 M/mcL (4.19-5.50); Red Cell Distribution Width 11.9 % (11.5-14.5); Segmented Neutrophils % 86.2 %
[2018-09-24 12:51] LABS: INR 1.3
[2018-09-24 12:54] LABS: Activated Partial Thrombo Time 31.9 Seconds (26.0-36.0)
[2018-09-24 12:55] LABS: Prothrombin Time 14.3 Seconds (9.4-12.1)
[2018-09-24 12:56] LABS: Hemoglobin 10.5 g/dL (12.9-16.9); Neutrophils # 7.7 K/mcL (1.6-8.9)
[2018-09-24 12:59] LABS: BUN/Creatinine Ratio 13 (6-26); Blood Urea Nitrogen 11 mg/dL (8-23); Calcium 6.5 mg/dL (8.6-10.3); Carbon Dioxide 24 mEq/L (23-29); Chloride 111 mEq/L (98-107); Glucose 97 mg/dL (70-105); Magnesium 2.5 mg/dL (1.6-2.6); Osmolality,Calculated 293 (280-300); Potassium 3.3 mEq/L (3.5-5.1); Sodium 142 mEq/L (136-145); eGFR For Non-African Americans > 60 (> 60)
[2018-09-24] MEDS: *HR* FentaNYL (PF) 100 MCG/2 ML VIAL IVP PRN ×3 (13:12→17:24)
[2018-09-24] MEDS: 0.9 % Sodium Chloride w KCl 20 MEQ/1,000 ML MLS IVC SCH (13:14)
--- NOTE | 2018-09-24 13:20 | Anesthesia Evaluation Post Op ---
Date of Encounter: 09/24/18 Time of Encounter: 13:19 - Vital Signs Vital Signs: Vital Signs/O2 Sat/Glucose, Most Recent Temp Pulse Resp BP Pulse Ox 98.1 F 63 12 125/84 98 09/24/18 05:47 09/24/18 05:47 09/24/18 12:17 09/24/18 12:17 09/24/18 12:17 - Lungs Lungs: Clear Ascult./Percussion - Airway Airway: Intubated - Cardiovascular Regular Rate - Mental Status Mental Status: Sedated - Pain Pain Scale used: Unable to assess - Nausea Vomiting Nausea Vomiting: Not Present - Hydration Hydration: NPO Anes Supervising Prov Stmt: Patient remains in ICU intubated and in stable condition
[2018-09-24] MEDS: niCARdipine 40 MG/200 ML MLS IVC SCH ×2 (14:02→20:13)
[2018-09-24] MEDS: *HR* OxyCODONE/APAP 5/325 TABLET PO PRN ×2 (14:02→20:12)
[2018-09-24] MEDS: Insulin Human Regular 100 UNIT in 0.9 % Sodium Chloride 100 ML IVC SCH ×2 (14:02→15:06)
[2018-09-24] MEDS: Nitroglycerin 25 MG/250 ML INFUS..BTL IVC SCH ×2 (14:10→20:13)
--- NOTE | 2018-09-24 14:20 | Operative Note ---
Date of procedure: 09/24/18 Was there an distribution center assistant present: Yes Basket Patcher: Bharat Craig Estimated blood loss (cc): 750 Specimen: none Condition: stable Disposition: ICU Procedure in Detail: Pre-preoperative diagnosis. Coronary artery disease. Postoperative diagnosis. Same. Procedures. Coronary artery bypass grafting 3 with the left internal mammary artery to the LAD and saphenous vein grafts to the obtuse marginal branch of the circumflex and first diagonal branches. Surgeon. Dr. Luis Carrillo. Basket Patcher. Bharat Craig. The patient is a 68-year-old gentleman who underwent cardiac catheterization which revealed triple-vessel disease with a 90% left main lesion, a proximal 90% LAD lesion, 100% block of his right coronary artery and a 70% circumflex coronary artery lesion. He was referred for surgery. He was brought to the operating room where he was prepped and draped in standard fashion. The right greater saphenous vein was harvested from the ankle to the groin through 2 small incisions using the scope. These incisions were subsequently closed with a deep layer of 2-0 Vicryl and a 3-0 Vicryl subcuticular stitch. A standard median sternotomy was performed. The left internal mammary artery retractor was inserted and the left internal mammary artery was harvested in standard fashion using the Bovie electrocoagulation. Following this, the mammary retractor was removed and the standard sternal hand funnel coater was inserted. Pericardium was opened in the midline and suspended with 2-0 silk stay sutures. A double pursestring of 20 [place] was placed in the aorta for the aortic cannulation site. A pursestring of 20 [place] was placed in the right atrial appendage for the venous uptake. The patient was heparinized. The aorta was cannulated without difficulty. 2 stage venous uptake cannula was inserted through the right atrial appendage. A pursestring of 4-0 silk was placed in the aorta and the cardioplegia needle was inserted through here. This was also used is an active and passive aortic vent. The patient was placed on cardiopulmonary bypass and cooled to 34.5 degrees. The aorta was crossclamped and a liter of antegrade cardioplegia was given. Topical cooling with iced saline slush was also used. Attention was first turned to the right coronary artery. The right coronary artery and its posterior descending branches were too small and diffusely diseased for grafting. Attention was next turned to the circumflex. The obtuse marginal branch was dissected free with the [place] blade and opened with the [place] blade and the [place] scissors. This had a lumen of 1-1/2 mm and was relatively free of disease. A standard end-to-side anastomosis was constructed using the saphenous vein and a 7-0 Prolene. When this is completed, the patient received additional antegrade cardioplegia and topical cooling. Attention was then turned to the diagonal system. The first diagonal was dissected free with the [place] blade and opened with the [place] blade and the [place] scissors. This had a lumen of 1- 1/2 mm with mild to moderate diffuse disease. A standard end-to-side anastomosis was constructed using the saphenous vein and a 7-0 Prolene. At this point, the patient received a last dose of antegrade cardioplegia. The LAD was dissected free with the [place] blade and opened the [place] blade and the [place] scissors. This had a lumen of 1-1/2 mm with mild to moderate diffuse disease. A standard end-to-side anastomosis was constructed using the mammary artery and a 7-0 Prolene. When this is completed, the previously placed bulldog clamp was removed. The pedicle was tacked to the surface the heart using 2 interrupted 5- 0 silk sutures. Cross-clamp was removed and rewarming was begun. Total cross- clamp time was 58 minutes. A side biting clamp was placed on the aorta and the cardioplegia needle was removed. 2 holes were made in the aorta using the [place] blade and the 4.0 mm aortic punch. 2 proximal anastomoses were made in standard fashion using the saphenous veins and a 5-0 Prolene. The circumflex anastomosis was superior and the diagonal anastomosis was inferior. This is completed, the grafts were de-aired using a #25-gauge needle and the previously placed bulldog clamps removed. Distal anastomoses were inspected and found to be hemostatic. Proximal anastomoses were marked with a marker from [place] [employer]. He did place some FloSeal and fibrillar around the proximal anastomoses. A pair of ventricular pacing wires was left. A 32 angle chest tube to the left pleural space. A 32 angle chest tube to the pericardial well. A 42 mediastinal chest tube. The patient is weaned from bypass requiring no pressors for support. He was decannulated and protamine was given. Hemostasis was good and the hemodynamics were good. Pericardium was loosely closed using interrupted 2-0 silk sutures. We did use platelet rich and platelet poor plasma to the sternum, tissues above the sternum and leg incisions. Sternum was closed with #7 sternal wires in simple and [id number] fashion. Fascia was run with #1 Vicryl. Subcutaneous tissues tissues with a 2-0 Vicryl. Skin was closed with 3-0 Vicryl subcuticular stitch. The patient tolerated the procedure well and was returned to intensive care unit in satisfactory and stable condition. Total bypass time 98 minutes. Total cross-clamp time 58 minutes. He been cooled to 34.5 degrees.
[2018-09-24 16:44] LABS: ABG Base Excess -1 mEq/L (-2 to 3); ABG HCO3 23 mEq/L (21-27); ABG Oxygen Saturation 96 % (95-98); ABG PCO2 32 mmHg (35-45); ABG PH 7.46 pH Units (7.32-7.45); ABG PO2 79 mmHg (85-104); ABG TCO2 24 mEq/L (20-26); Blood Gas Modality CPAP/PS; Blood Gas PEEP 5 cm H2O; Blood Gas Pressure Support 10 cm H2O
[2018-09-24 17:47] LABS: ABG Base Excess 1 mEq/L (-2 to 3); ABG HCO3 26 mEq/L (21-27); ABG Oxygen Saturation 95 % (95-98); ABG PCO2 43 mmHg (35-45); ABG PH 7.39 pH Units (7.32-7.45); ABG PO2 77 mmHg (85-104); ABG TCO2 27 mEq/L (20-26)
[2018-09-25] MEDS: 0.9 % Sodium Chloride w KCl 20 MEQ/1,000 ML MLS IVC SCH (02:19)
[2018-09-25 04:18] LABS: Basophils % 0.1 %; Hematocrit 31.3 % (37.5-50.1); Hemoglobin 10.8 g/dL (12.9-16.9); Immature Granulocytes % 0.2 % (0-4); Lymphocytes # 0.9 K/mcL (0.6-4.6); Lymphocytes % 9.9 %; Mean Corpuscular HGB Conc 34.5 g/dL (31.6-35.5); Mean Corpuscular Hemoglobin 32.6 pg (28.0-33.3); Mean Corpuscular Volume 94.6 fL (83.0-100.0); Mean Platelet Volume 10.3 fL (9.4-12.4); Monocytes # 1.1 K/mcL (0.0-1.3); Monocytes % 12.1 %; Neutrophils # 6.9 K/mcL (1.6-8.9); Platelet Count 152 K/mcL (140-400); Red Blood Count 3.31 M/mcL (4.19-5.50); Red Cell Distribution Width 12.1 % (11.5-14.5); Segmented Neutrophils % 77.7 %
[2018-09-25] MEDS: niCARdipine 40 MG/200 ML MLS IVC SCH (04:24)
[2018-09-25] MEDS: Nitroglycerin 25 MG/250 ML INFUS..BTL IVC SCH (04:24)
[2018-09-25 04:26] LABS: INR 1.3; Prothrombin Time 14.2 Seconds (9.4-12.1)
[2018-09-25 04:29] LABS: Activated Partial Thrombo Time 25.7 Seconds (26.0-36.0)
[2018-09-25 04:37] LABS: BUN/Creatinine Ratio 17 (6-26); Blood Urea Nitrogen 18 mg/dL (8-23); Calcium 7.9 mg/dL (8.6-10.3); Carbon Dioxide 23 mEq/L (23-29); Chloride 108 mEq/L (98-107); Glucose 128 mg/dL (70-105); Magnesium 2.2 mg/dL (1.6-2.6); Osmolality,Calculated 290 (280-300); Potassium 4.9 mEq/L (3.5-5.1); Sodium 138 mEq/L (136-145); eGFR For Non-African Americans > 60 (> 60)
[2018-09-25] MEDS ORDERED: Furosemide 20 MG/2 ML VIAL IVP ONE (07:50)
--- NOTE | 2018-09-25 07:54 | Cardiothoracic Progress Note ---
Date of Encounter: 09/25/18 Time of Encounter: 07:52 - Assessment and plan (1) CAD (coronary artery disease) Current Visit: Yes Status: Acute The assessment and plan as outlined above was discussed with the patient and/or family members who expressed understanding and agreement. All questions were answered. Chest tubes and pacing wires were removed. We will check a stat portable chest x-ray. I will order Toradol for pain control. We will discontinue the patient's IV fluids, Martin catheter, [place]ha catheter and arterial line. We will transfer the patient to the floor when a bed becomes available. Qualifiers: Coronary Disease-Associated Artery/Lesion type: [place] artery [place] vs. transplanted heart: [place] heart Associated angina: with other forms of angina Qualified Code(s): I25.118 - Atherosclerotic heart disease of [place] coronary artery with other forms of angina pectoris - Subjective Interval history: The patient complains of mild postoperative pain. He does have moderate lower back pain which is been a chronic problem. Vital Signs, Last 4 Hours Temp Pulse Resp BP Pulse Ox 09/25/18 07:49 16 92 09/25/18 07:00 85 20 124/74 97 09/25/18 06:00 99.3 F 87 23 133/89 96 09/25/18 05:00 99.3 F 84 24 118/72 96 09/25/18 04:00 99.5 F 84 22 129/77 94 Oxgyen Flow Rate Oxygen Flow Rate (LPM) 3 Clinical Data, last 8 Hours Output, Chest Tube Drainage 5 Amount [Mediastinal #3] Output, Chest Tube Drainage 5 Amount [Mediastinal #3] Output, Chest Tube Drainage 5 Amount [Mediastinal #3] Output, Chest Tube Drainage 10 Amount [Mediastinal #3] Output, Chest Tube Drainage 5 Amount [Mediastinal #3] Output, Chest Tube Drainage 5 Amount [Mediastinal #2] Output, Chest Tube Drainage 0 Amount [Mediastinal #2] Output, Chest Tube Drainage 0 Amount [Mediastinal #2] Output, Chest Tube Drainage 0 Amount [Mediastinal #2] Output, Chest Tube Drainage 10 Amount [Mediastinal #2] Output, Chest Tube Drainage 20 Amount [Mediastinal #1] Output, Chest Tube Drainage 30 Amount [Mediastinal #1] Output, Chest Tube Drainage 10 Amount [Mediastinal #1] Output, Chest Tube Drainage 10 Amount [Mediastinal #1] Output, Chest Tube Drainage 20 Amount [Mediastinal #1] Output, Chest Tube Drainage 20 Amount [Mediastinal #1] Weight 09/23/18 09/24/18 09/25/18 23:59 23:59 23:59 Weight 91.3 kg Lungs are clear to percussion and auscultation. Heart is in a normal sinus rhythm. All incisions are healing well without signs of infection and the sternum is stable. Chest tube drainage is minimal and there is no air leak. - Labs 09/25/18 04:00 09/25/18 04:05 Lab Results, Last 24 hours 09/24/18 09/24/18 09/24/18 12:30 12:30 12:30 WBC 8.9 D Hgb 10.5 L D Hct 30.4 L Plt Count 148 INR 1.3 APTT 31.9 Sodium 142 Potassium 3.3 L Chloride 111 H Carbon Dioxide 24 BUN 11 Creatinine 0.84 Glucose 97 Calcium 6.5 L Magnesium 2.5 09/24/18 09/25/18 09/25/18 16:20 04:00 04:00 WBC 8.9 Hgb 10.8 L Hct 31.3 L Plt Count 152 INR 1.3 APTT 25.7 L Sodium Potassium 4.4 D Chloride Carbon Dioxide BUN Creatinine Glucose Calcium Magnesium 09/25/18 04:05 WBC Hgb Hct Plt Count INR APTT Sodium 138 Potassium 4.9 Chloride 108 H Carbon Dioxide 23 BUN 18 Creatinine 1.04 Glucose 128 H Calcium 7.9 L Magnesium 2.2 - VTE Documentation of Mechanical Device: Graduated compression elastic hosiery Consult Discharge Plan - Plan Referrals: Norma Salazar MD [Primary Care Provider] -
[2018-09-25] MEDS: Chlorhexidine Rinse 15 ML MOUTHWASH MM SCH ×2 (08:57→20:08)
[2018-09-25] MEDS: Aspirin 81 MG TAB.CHEW PO SCH (08:57)
[2018-09-25] MEDS: *HR* OxyCODONE/APAP 5/325 TABLET PO PRN ×2 (09:12→17:06)
[2018-09-25] MEDS ORDERED: Nitroglycerin 0.4 MG TAB.SUBL SL PRN (09:17)
[2018-09-25] MEDS ORDERED: Naloxone 0.4 MG/ML INJ IVP PRN (09:17)
[2018-09-25] MEDS ORDERED: Ondansetron 4 MG/2 ML VIAL IVP PRN (09:17)
[2018-09-25] MEDS ORDERED: D5% in Water 1,000 ML IVC PRN (09:17)
[2018-09-25] MEDS ORDERED: Acetaminophen 325 MG TABLET PO PRN (09:17)
[2018-09-25] MEDS ORDERED: *HR* Dextrose 50 % in Water (Syg) 50 ML SYRINGE IVP PRN (09:17)
[2018-09-25] MEDS ORDERED: Dextrose Gel 15 GM/37.5 ML TUBE PO PRN ×2 (09:17)
[2018-09-25] MEDS ORDERED: *HR* Promethazine 25 MG/ML VIAL IVP PRN (09:17)
[2018-09-25] MEDS ORDERED: *HR* FentaNYL (PF) 100 MCG/2 ML VIAL IVP PRN (09:17)
--- NOTE | 2018-09-25 11:40 | Electrocardiograph Report ---
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
[2018-09-25] MEDS: Insulin LISPRO 300 UNITS/3 ML VIAL SQ SCH ×3 (11:44→20:12)
[2018-09-25] MEDS: Ketorolac 15 MG/ML VIAL IVP SCH ×3 (11:49→23:06)
[2018-09-25] MEDS ORDERED: Ketorolac 15 MG/ML VIAL IVP SCH (12:00)
[2018-09-25] MEDS: *HR* Heparin 5,000 UNIT/ML VIAL SQ SCH (17:06)
[2018-09-26 03:11] LABS: Basophils % 0.2 %; Eosinophils % 0.5 %; Hematocrit 27.3 % (37.5-50.1); Immature Granulocytes % 0.5 % (0-4); Lymphocytes # 0.9 K/mcL (0.6-4.6); Lymphocytes % 14.6 %; Mean Corpuscular HGB Conc 33.7 g/dL (31.6-35.5); Mean Corpuscular Hemoglobin 32.6 pg (28.0-33.3); Mean Corpuscular Volume 96.8 fL (83.0-100.0); Mean Platelet Volume 10.5 fL (9.4-12.4); Monocytes # 0.9 K/mcL (0.0-1.3); Monocytes % 14.4 %; Neutrophils # 4.5 K/mcL (1.6-8.9); Platelet Count 134 K/mcL (140-400); Red Blood Count 2.82 M/mcL (4.19-5.50); Red Cell Distribution Width 12.2 % (11.5-14.5); Segmented Neutrophils % 69.8 %
[2018-09-26 03:14] LABS: Hemoglobin 9.2 g/dL (12.9-16.9)
[2018-09-26 03:28] LABS: BUN/Creatinine Ratio 22 (6-26); Blood Urea Nitrogen 28 mg/dL (8-23); Calcium 8.3 mg/dL (8.6-10.3); Carbon Dioxide 25 mEq/L (23-29); Chloride 106 mEq/L (98-107); Glucose 136 mg/dL (70-105); Osmolality,Calculated 290 (280-300); Potassium 4.3 mEq/L (3.5-5.1); Sodium 136 mEq/L (136-145); eGFR For Non-African Americans 56 (> 60)
[2018-09-26] MEDS: Ketorolac 15 MG/ML VIAL IVP SCH ×4 (05:35→23:04)
[2018-09-26] MEDS: *HR* Heparin 5,000 UNIT/ML VIAL SQ SCH ×2 (05:35→18:24)
[2018-09-26] MEDS ORDERED: Amiodarone Premix 150 MG/100 ML BAG IVPB ONE (06:23)
[2018-09-26] MEDS ORDERED: Amiodarone Premix 360 MG/200 ML BAG IVC ONE (06:30)
[2018-09-26] MEDS: Aspirin 81 MG TAB.CHEW PO SCH (09:07)
[2018-09-26] MEDS: Insulin LISPRO 300 UNITS/3 ML VIAL SQ SCH ×4 (09:07→19:19)
[2018-09-26] MEDS: Chlorhexidine Rinse 15 ML MOUTHWASH MM SCH ×2 (09:07→19:52)
[2018-09-26] MEDS: Metoprolol XL (24 HR) Succ 25 MG TAB.ER.24H PO SCH (09:07)
[2018-09-26] MEDS ORDERED: Acetaminophen IV 1,000 MG/100 ML INFUS..BTL IVPB ONE (12:16)
[2018-09-26] MEDS: Amiodarone Premix 360 MG/200 ML BAG IVC SCH ×2 (12:46→23:33)
--- NOTE | 2018-09-26 13:03 | Cardiothoracic Progress Note ---
Date of Encounter: 09/26/18 Time of Encounter: 13:00 - Subjective Procedure(s) Performed: The patient was seen and examined. He is POD # 2 from a CABG 3. The patient had an uneventful intraoperative course and recovered uneventfully in the ICU. His chest tubes were removed. Notably, this morning he developed acute onset of atrial fibrillation and was givin a loading dose of amiodarone and has been on a drip since that time. He converted to sinus rhythm. The patient is currently sitting up in a chair. He is without complaint but does have some postoperative sternal discomfort and has notably had difficulty clearing secretions. He is currently on 2 L nasal cannula and with oxygen sa turations greater than 94%. We discussed plans to continue the patient on his current amiodarone drip. He was given supplemental potassium as well as IV magnesium this morning. We discussed plans for possible transfer to the floor depending on bed availability. Emphasize importance of coughing, deep breathing and pulmonary toilet. Vital Signs, Last 4 Hours Temp Pulse Resp BP Pulse Ox 09/26/18 12:16 98.5 F 09/26/18 12:00 73 16 108/60 91 09/26/18 10:00 76 16 119/72 94 Oxgyen Flow Rate Oxygen Flow Rate (LPM) 3 Clinical Data, last 8 Hours Output, Urine Amount 125 Output, Urine Amount 125 Weight 09/24/18 09/25/18 09/26/18 23:59 23:59 23:59 Weight 91.3 kg - Physical Examination General: Other (Sitting up in chair, awake, alert, no acute distress) Sternum: Other (Dressing intact, clean and dry) - Labs 09/26/18 03:00 09/26/18 03:00 Lab Results, Last 24 hours 09/26/18 09/26/18 03:00 03:00 WBC 6.4 Hgb 9.2 L D Hct 27.3 L Plt Count 134 L Sodium 136 Potassium 4.3 Chloride 106 Carbon Dioxide 25 BUN 28 H Creatinine 1.28 Glucose 136 H Calcium 8.3 L - VTE Documentation of Mechanical Device: Graduated compression elastic hosiery Consult Discharge Plan - Plan Referrals: Norma Salazar MD [Primary Care Provider] -
[2018-09-27 03:20] LABS: Basophils % 0.4 %; Eosinophils # 0.1 K/mcL (0.0-0.6); Hematocrit 27.9 % (37.5-50.1); Hemoglobin 9.6 g/dL (12.9-16.9); Immature Granulocytes % 0.3 % (0-4); Lymphocytes # 1.3 K/mcL (0.6-4.6); Lymphocytes % 18.3 %; Mean Corpuscular HGB Conc 34.4 g/dL (31.6-35.5); Mean Corpuscular Volume 95.9 fL (83.0-100.0); Mean Platelet Volume 10.2 fL (9.4-12.4); Monocytes # 0.9 K/mcL (0.0-1.3); Neutrophils # 4.7 K/mcL (1.6-8.9); Platelet Count 149 K/mcL (140-400); Red Blood Count 2.91 M/mcL (4.19-5.50); Red Cell Distribution Width 12.2 % (11.5-14.5)
[2018-09-27 03:41] LABS: BUN/Creatinine Ratio 19 (6-26); Blood Urea Nitrogen 20 mg/dL (8-23); Calcium 8.5 mg/dL (8.6-10.3); Carbon Dioxide 27 mEq/L (23-29); Chloride 108 mEq/L (98-107); Glucose 119 mg/dL (70-105); Osmolality,Calculated 290 (280-300); Potassium 4.5 mEq/L (3.5-5.1); Sodium 138 mEq/L (136-145); eGFR For Non-African Americans > 60 (> 60)
[2018-09-27] MEDS: Ketorolac 15 MG/ML VIAL IVP SCH ×3 (05:56→17:27)
[2018-09-27] MEDS: *HR* Heparin 5,000 UNIT/ML VIAL SQ SCH ×2 (05:56→17:27)
[2018-09-27] MEDS: Aspirin 81 MG TAB.CHEW PO SCH (10:13)
[2018-09-27] MEDS: Chlorhexidine Rinse 15 ML MOUTHWASH MM SCH ×2 (10:13→20:52)
[2018-09-27] MEDS: Insulin LISPRO 300 UNITS/3 ML VIAL SQ SCH ×4 (10:13→23:54)
[2018-09-27] MEDS: Metoprolol XL (24 HR) Succ 25 MG TAB.ER.24H PO SCH (10:13)
[2018-09-27] MEDS: Amiodarone Premix 360 MG/200 ML BAG IVC SCH (11:46)
[2018-09-27] MEDS ORDERED: *HR* Amiodarone 200 MG TABLET PO SCH (12:15)
[2018-09-27] MEDS: *HR* Amiodarone 200 MG TABLET PO SCH ×2 (13:55→20:52)
--- NOTE | 2018-09-27 13:58 | Cardiothoracic Progress Note ---
Date of Encounter: 09/27/18 Time of Encounter: 13:55 - Subjective Procedure(s) Performed: The patient was seen and examined. He is POD # 3 from a CABG 3. The patient had an uneventful intraoperative course and recovered uneventfully in the ICU. His chest tubes have been removed. Notably, yesterday morning this morning he developed acute onset of atrial fibrillation and was givin a loading dose of amiodarone and has been on a drip since that time and he converted to sinus rhythm. The patient is currently sitting up in a chair. He is without complaint but does continue to have some postoperative sternal discomfort. He has been weaned off his oxygen with oxygen saturations greater than 91%. We discussed plans to start him on by mouth amiodarone 400 mg twice a day and discontinue am iodarone drip 1 hour after his first dose. We discussed plans for possible transfer to the floor today depending on bed availability. I again emphasized importance of coughing, deep breathing and pulmonary toilet. The patient and nursing staff stated he understood and agreed with this plan. Vital Signs, Last 4 Hours Temp Pulse Resp BP Pulse Ox 09/27/18 12:10 98.4 F 09/27/18 12:00 77 22 119/66 91 09/27/18 11:00 75 20 90 Oxgyen Flow Rate Oxygen Flow Rate (LPM) 3 Clinical Data, last 8 Hours Output, Urine Amount 50 Output, Urine Amount 200 Output, Urine Amount 150 - Physical Examination General: Other (Sitting up in chair, comfortable, no acute distress) - Labs 09/27/18 03:00 09/27/18 03:00 Lab Results, Last 24 hours 09/27/18 09/27/18 03:00 03:00 WBC 7.0 Hgb 9.6 L Hct 27.9 L Plt Count 149 Sodium 138 Potassium 4.5 Chloride 108 H Carbon Dioxide 27 BUN 20 Creatinine 1.08 Glucose 119 H Calcium 8.5 L - VTE Documentation of Mechanical Device: Graduated compression elastic hosiery Consult Discharge Plan - Plan Referrals: Norma Salazar MD [Primary Care Provider] -
[2018-09-28] MEDS: Ketorolac 15 MG/ML VIAL IVP SCH ×3 (00:52→11:41)
[2018-09-28] MEDS: *HR* OxyCODONE/APAP 5/325 TABLET PO PRN (00:56)
[2018-09-28 04:49] LABS: Basophils % 0.4 %; Eosinophils # 0.1 K/mcL (0.0-0.6); Eosinophils % 1.6 %; Hematocrit 26.4 % (37.5-50.1); Immature Granulocytes % 0.4 % (0-4); Lymphocytes # 1.2 K/mcL (0.6-4.6); Lymphocytes % 24.5 %; Mean Corpuscular HGB Conc 34.1 g/dL (31.6-35.5); Mean Corpuscular Hemoglobin 32.5 pg (28.0-33.3); Mean Corpuscular Volume 95.3 fL (83.0-100.0); Mean Platelet Volume 10.1 fL (9.4-12.4); Monocytes # 0.6 K/mcL (0.0-1.3); Monocytes % 12.9 %; Platelet Count 178 K/mcL (140-400); Red Blood Count 2.77 M/mcL (4.19-5.50); Red Cell Distribution Width 11.9 % (11.5-14.5); Segmented Neutrophils % 60.2 %
[2018-09-28 05:09] LABS: BUN/Creatinine Ratio 21 (6-26); Blood Urea Nitrogen 22 mg/dL (8-23); Calcium 8.1 mg/dL (8.6-10.3); Carbon Dioxide 26 mEq/L (23-29); Chloride 109 mEq/L (98-107); Glucose 104 mg/dL (70-105); Osmolality,Calculated 296 (280-300); Potassium 4.2 mEq/L (3.5-5.1); Sodium 141 mEq/L (136-145); eGFR For Non-African Americans > 60 (> 60)
[2018-09-28] MEDS: *HR* Heparin 5,000 UNIT/ML VIAL SQ SCH ×2 (06:23→17:37)
--- NOTE | 2018-09-28 08:41 | Cardiothoracic Progress Note ---
Date of Encounter: 09/28/18 Time of Encounter: 08:39 - Assessment and plan (1) CAD (coronary artery disease) Current Visit: Yes Status: Acute The patient is recovering well from his CABG3. He is ambulating in the hallways without difficulty. He has no complaints. The assessment and plan as outlined above was discussed with the patient and/or family members who expressed understanding and agreement. All questions were answered. Qualifiers: Coronary Disease-Associated Artery/Lesion type: [place] artery [place] vs. transplanted heart: [place] heart Associated angina: with other forms of angina Qualified Code(s): I25.118 - Atherosclerotic heart disease of [place] coronary artery with other forms of angina pectoris - Subjective Procedure(s) Performed: POD#4 S/P CABG3 Interval history: The patient remained hemodynamically stable overnight. He has no complaints. He is ambulating in the hallways without difficulty. Vital Signs, Last 4 Hours Temp Pulse Resp BP Pulse Ox 09/28/18 07:35 97.6 F 62 20 128/75 94 Oxgyen Flow Rate Oxygen Flow Rate (LPM) 2 Weight 09/26/18 09/27/18 09/28/18 23:59 23:59 23:59 Weight 92.5 kg - Physical Examination General: Conversant, No Apparent Distress Neck: No JVD, Normal carotid pulses Cardiac: Reg Rate and Rhythm, Normal S1 and S2, No Murmur Incision: No signs of infection, Dry/intact dressing Sternum: Stable Pacing Wires: In place Lungs: Normal Breath Sounds, No Wheeze, Rales, Rhonchi Neuro: Alert and responsive, No focal deficits noted Vascular: Normal capillary refill Extremities: No Clubbing, No Cyanosis, No Edema - Labs 09/28/18 04:30 09/28/18 04:30 Lab Results, Last 24 hours 09/28/18 09/28/18 04:30 04:30 WBC 5.0 Hgb 9.0 L Hct 26.4 L Plt Count 178 Sodium 141 Potassium 4.2 Chloride 109 H Carbon Dioxide 26 BUN 22 Creatinine 1.04 Glucose 104 Calcium 8.1 L - VTE Documentation of Mechanical Device: Graduated compression elastic hosiery Consult Discharge Plan - Plan Referrals: Norma Salazar MD [Primary Care Provider] -
[2018-09-28] MEDS: Aspirin 81 MG TAB.CHEW PO SCH (08:55)
[2018-09-28] MEDS: Metoprolol XL (24 HR) Succ 25 MG TAB.ER.24H PO SCH (08:55)
[2018-09-28] MEDS: *HR* Amiodarone 200 MG TABLET PO SCH ×2 (08:55→20:19)
[2018-09-28] MEDS: Chlorhexidine Rinse 15 ML MOUTHWASH MM SCH ×2 (08:56→20:18)
[2018-09-28] MEDS: Insulin LISPRO 300 UNITS/3 ML VIAL SQ SCH ×4 (09:43→20:21)
[2018-09-29] MEDS: *HR* Heparin 5,000 UNIT/ML VIAL SQ SCH ×2 (04:57→17:39)
[2018-09-29] MEDS: *HR* Amiodarone 200 MG TABLET PO SCH ×2 (07:58→20:08)
[2018-09-29] MEDS: Metoprolol XL (24 HR) Succ 25 MG TAB.ER.24H PO SCH (07:58)
[2018-09-29] MEDS: Insulin LISPRO 300 UNITS/3 ML VIAL SQ SCH ×4 (07:58→20:07)
[2018-09-29] MEDS: Aspirin 81 MG TAB.CHEW PO SCH (07:58)
[2018-09-29] MEDS: Chlorhexidine Rinse 15 ML MOUTHWASH MM SCH ×2 (07:59→20:08)
--- NOTE | 2018-09-29 09:03 | Cardiothoracic Progress Note ---
Date of Encounter: 09/29/18 Time of Encounter: 09:02 - Assessment and plan (1) CAD (coronary artery disease) Current Visit: Yes Status: Acute The patient is recovering well from his CABG3. He is ambulating in the hallways without difficulty. He has no complaints. He will probably be ready for discharge to home in the morning. The assessment and plan as outlined above was discussed with the patient and/or family members who expressed understanding and agreement. All questions were answered. Qualifiers: Coronary Disease-Associated Artery/Lesion type: [place] artery [place] vs. transplanted heart: [place] heart Associated angina: with other forms of angina Qualified Code(s): I25.118 - Atherosclerotic heart disease of [place] coronary artery with other forms of angina pectoris - Subjective Procedure(s) Performed: POD#5 S/P CABG3 Interval history: The patient remained hemodynamically stable overnight. He has no complaints. He is ambulating in the hallways without difficulty. Vital Signs, Last 4 Hours Temp Pulse Resp BP Pulse Ox 09/29/18 07:47 98.9 F 63 18 139/74 91 09/29/18 07:00 67 Oxgyen Flow Rate Oxygen Flow Rate (LPM) 0 Clinical Data, last 8 Hours Output, Urine Amount 500 Weight 09/27/18 09/28/18 09/29/18 23:59 23:59 23:59 Weight 92.5 kg 92.4 kg - Physical Examination General: Conversant, No Apparent Distress Neck: No JVD, Normal carotid pulses Cardiac: Reg Rate and Rhythm, Normal S1 and S2, No Murmur Incision: No signs of infection, Dry/intact dressing Sternum: Stable Pacing Wires: In place Lungs: Normal Breath Sounds, No Wheeze, Rales, Rhonchi Neuro: Alert and responsive, No focal deficits noted Vascular: Normal capillary refill Extremities: No Clubbing, No Cyanosis, No Edema, Normal Pulses - Labs 09/28/18 04:30 09/28/18 04:30 - VTE Documentation of Mechanical Device: Graduated compression elastic hosiery Consult Discharge Plan - Plan Referrals: Norma Salazar MD [Primary Care Provider] -
[2018-09-30] MEDS: *HR* Heparin 5,000 UNIT/ML VIAL SQ SCH (06:14)
[2018-09-30 07:33] VITALS: BP 143/82
[2018-09-30] MEDS: Aspirin 81 MG TAB.CHEW PO SCH (07:34)
[2018-09-30] MEDS: Metoprolol XL (24 HR) Succ 25 MG TAB.ER.24H PO SCH (07:34)
[2018-09-30] MEDS: Insulin LISPRO 300 UNITS/3 ML VIAL SQ SCH (07:34)
[2018-09-30] MEDS: Chlorhexidine Rinse 15 ML MOUTHWASH MM SCH (07:34)
[2018-09-30] MEDS: *HR* Amiodarone 200 MG TABLET PO SCH (07:34)
--- NOTE | 2018-09-30 08:24 | Discharge Summary ---
Orders not resulted at time of discharge: Pending orders 09/22/18 16:04 Red Blood Cells [BBK] Routine Type and Screen [BBK] Routine Date of Encounter: 09/30/18 Time of Encounter: 08:17 - Discharge Diagnosis (1) CAD (coronary artery disease) Priority: Primary Status: Acute Qualifiers: Coronary Disease-Associated Artery/Lesion type: [place] artery [place] vs. transplanted heart: [place] heart Associated angina: with other forms of angina Qualified Code(s): I25.118 - Atherosclerotic heart disease of [place] coronary artery with other forms of angina pectoris - Hospital Course Hospital course: Mr. Nelson is a 68 year old male The patient is a 68-year-old gentleman who presented with a positive stress test and shortness of breath. Cardiac catheterization revealed severe coronary artery disease and he was referred for surgery. On 09/24/2018, I took him to the operating room for coronary artery bypass grafting 3, utilizing the left internal mammary artery. The patient tolerated this procedure well and had an uneventful postoperative course. On September 25 his chest tubes and pacing wires were removed and he was transferred to the floor. He did go into atrial fibrillation and this was converted back to normal sinus rhythm with amiodarone. The patient otherwise did well and was discharged on September 30. At that time, he was afebrile. Lungs were clear to percussion and auscultation. Heart was in a normal sinus rhythm. All incisions were healing well without signs of infection and the sternum was stable. Discharge medications are on the med rec and include narcotics for pain. I did check the [place] automated Rx reporting system. He was postoperative and was given a one-week supply. Appropriate precautions were given. He was to avoid heavy lifting for a total of 3 months after surgery, but to walk as much as possible. He is to return to his previous and regular diet. He is to avoid driving for 1 month. He was to follow up and see me in the office in 4 weeks as directed. He is to follow-up with his primary care doctor and cartridge gauger as directed. He is to call sooner for any difficulties. - Time Spent with Patient Total time spent providing and/or coordinating discharge services: - Discharge Medications Prescriptions: OxyCODONE/APAP 5/325 [Percocet 5/325 MG] 1 each PO Q4HR PRN 7 Days #14 tablet PRN Reason: Severe Pain Amiodarone [Cordarone] 200 mg PO DAILY #30 tablet Aspirin 81 mg PO DAILY #60 tab.chew Atorvastatin [Lipitor] 80 mg PO HS #30 tablet Home Medications: Doxycycline 100 mg PO BID 09/22/18 [History] Metoprolol Succinate [Toprol Xl] 25 mg PO DAILY 09/22/18 [History] Nitroglycerin [Nitrostat] 0.4 mg SL AD 09/23/18 [History] Amiodarone [Cordarone] 200 mg PO DAILY #30 tablet 09/30/18 [Rx] Aspirin 81 mg PO DAILY #60 tab.chew 09/30/18 [Rx] Atorvastatin [Lipitor] 80 mg PO HS #30 tablet 09/30/18 [Rx] OxyCODONE/APAP 5/325 [Percocet 5/325 MG] 1 each PO Q4HR PRN 7 Days #14 tablet 09/30/18 [Rx] Allergies/Adverse Reactions: Allergy/AdvReac Type Severity Reaction Status Date / Time No Known Allergies Allergy Verified 09/23/18 09:03 Date of admission: 09/22/18 11:14 Primary care physician: Norma Salazar MD Consults: 09/22/18 11:17 Consult to Cardiothoracic Surgery [CONS] Routine Consulting Provider: Cardiothoracic Surgery [place] Reason for Consult: 3VCAD, eval for CABG Call Completed: Yes 09/22/18 14:15 Consult to Care Associate [CONS] Routine Reason for SW Consult: poa 09/24/18 12:25 Consult to Cardiac Rehabilitation-Phase1 [CONS] Routine Comment: Reason for Consult: Post open heart Call Completed: Yes Consult to Care Associate [CONS] Routine Reason for SW Consult: open heart 09/25/18 09:17 Consult for Pharmacy Education [CONS] Routine Reason for Consult: Post-Op Heart Call Completed: Yes Consult to Physical Therapy [CONS] Routine Comment: Evaluate, develop and implement POC Reason for Consult: Post open heart Does patient have active BEDREST order?: No Is patient medically & hemodynamically stable?: Yes Procedure(s) Performed: 09/24/2018. Coronary artery bypass grafting 3, utilizing the left internal mammary artery. Discharging clinician: Luis Carrillo Anticipated date of discharge: 09/30/18 Physical Examination Vital Signs, Last 4 Hours Temp Pulse Resp BP Pulse Ox 09/30/18 07:40 63 09/30/18 07:30 98.5 F 69 93 143/82 90 09/30/18 04:38 66 18 90 - Patient Status Disposition: Home, Self-Care Functional capacity at discharge: independent ambulation Overall status at discharge: patient is progressing back to baseline - Discharge Instructions Follow Up With: Norma Salazar MD [Primary Care Provider] - [facility] Aspirin Cont/Prescribed at DC: Yes Beta Cathie Cont/Prescribed at DC: Yes Statin Cont/Prescribed at DC: Yes YUDY/ARB Cont/Prescribed at DC: Not indicated - VTE Documentation of Mechanical Device: Graduated compression elastic hosiery
== END 2018-09-30 10:54 | disposition home or self-care (01) | DRG 234 ==
LOC: INVDIALAB 08:34 → 2NNU 11:14 → ICNU 09-24 07:18 → 2NNU 09-27 17:17
PROVIDERS: ADMIT Internal Medicine Interventional Cardiology; ATTEND Thoracic Surgery (Cardiothoracic Vascular Surgery)